=== PATIENT | male | born 1980 | race Caucasian/White ===

== ENCOUNTER 2024-05-26 17:47 | Observation (INO) ==
[2024-05-26 18:30] LABS: Basophils # (auto) 0.04 K/uL (0.00-0.20); Basophils % (auto) 0.3 %; Eosinophils # (auto) 0.27 K/uL (0.00-0.50); Eosinophils % (auto) 2.2 %; Hematocrit (blood only) 42.1 % (42.0-52.0); Hemoglobin 14.5 g/dl (14.0-18.0); Immature Granulocytes # (auto) 0.04 K/uL (0.01-0.20); Immature Granulocytes % (auto) 0.3 %; Lymphocytes # (auto) 2.77 K/uL (1.20-3.40); Lymphocytes % (auto) 22.9 %; Mean Corpuscular Hemoglobin 30.5 pg (25.0-34.0); Mean Corpuscular Hgb Conc 34.4 g/dL (32.0-36.0); Mean Corpuscular Volume 88.4 fL (80.0-100.0); Mean Platelet Volume 11.1 fL (9.4-12.4); Monocytes # (auto) 0.64 K/uL (0.11-0.59); Monocytes % (auto) 5.3 %; Neutrophils # (auto) 8.34 K/uL (1.40-6.50); Platelet Count 190 K/uL (130-400); RDW Standard Deviation 38.4 fL (36.4-46.3); Red Blood Count 4.76 M/uL (4.70-6.10)
[2024-05-26] MEDS: ONDANSETRON INJ 2 MG/ML 2 ML VIAL IV STA (18:30)
[2024-05-26] MEDS: SODIUM CHLORIDE 0.9% 1,000 ML IV ONE (18:31)
--- NOTE | 2024-05-26 18:34 | Emergency Department Note ---
Impression & Plan Acute appendicitis ED Provider Note Diagnosis: Acute appendicitis Disposition: Admission CHIEF COMPLAINT: Abdominal pain HPI: Patient is a 43-year-old male presenting with complaint of right-sided abdominal pain. Patient states symptoms started as of yesterday and have continued today. Patient points to the right lower quadrant when asked where his pain is located. Patient denies any fevers. Patient has had nausea. Patient denies any prior abdominal surgeries. Patient denies any sick contacts. PAST MEDICAL HISTORY: See Below PAST SURGICAL HISTORY: See Below SOCIAL HISTORY: See Below HOME MEDICATIONS: See Below ALLERGIES: See Below VITALS: See Below PHYSICAL EXAMINATION: GENERAL: Well appearing, well nourished, NAD, non-toxic. EYE EXAM: Normal conjunctiva. OROPHARYNX: Moist mucus membranes. Grossly normal dentition. NECK: Supple, LUNGS: Clear to auscultation. Normal chest wall mechanics. HEART: NSR ABDOMEN: Abdomen soft, tenderness right lower quadrant BACK: No CVA TTP. SKIN: No rashes and no bruising. UPPER EXTREMITIES: Upper extremities are grossly normal LOWER EXTREMITIES: Grossly normal, no edema. NEURO EXAM: A&O x3,, normal speech, moves all 4 extremities PSYCH: Cooperative MEDICAL DECISION MAKING: Reviewed external documents: History obtained from: Patient ER Course: Patient is a 43-year-old male presenting with complaint of right lower quadrant abdominal pain. Patient's pain is constant. Patient has leukocytosis on lab work. Patient had CT scan of abdomen pelvis performed which showed acute uncomplicated appendicitis. Patient was given IV Zosyn. Patient placed on maintenance fluids. Patient's last oral intake was 1 PM. On-call general surgery team Dr. Cain, coming into the hospital to perform surgery this evening. Labs (independently interpreted) are significant for: Leukocytosis Medications given: Normal saline, Zosyn Consultants: Dr. Cain Triage Nursing notes reviewed and agree them. Vital Signs: reviewed and remarkable for: no significant abnormalities Past Med/Surg History Problem List (Updated 05/27/24 @ 00:13 by Miki Faye DO) Encounter for pre-operative examination Acute appendicitis (Acute) Medical History (Updated 05/27/24 @ 00:13 by Miki Faye DO) No pertinent past medical history Surgical History (Updated 05/26/24 @ 21:59 by Berry Landis MD) No pertinent past surgical history Social History Smoking Status: Current some day smoker Preferred Language: Swedish Feels Safe at Home: Yes Allergies Allergies Allergy/AdvReac Type Severity Reaction Status Date / Time No Known Allergies Allergy Unverified 05/26/24 22:01 Results & Data (ED) Vital Signs Vital Signs - 24 hr 05/26/24 17:49 05/26/24 18:32 05/26/24 20:00 Temperature 36.4 C L Temperature Source Temporal Artery Scan Pulse Rate 81 Pulse Rate [Apical] 75 81 Pulse Rhythm [Apical] Pulse Strength [Apical] Respiratory Rate 16 16 20 Respiratory Effort / Characteristics Non-Labored Respiratory Depth Normal Respiratory Pattern Blood Pressure 156/102 H Blood Pressure [Left Arm] 126/82 129/94 Blood Pressure Mean 120 Blood Pressure Mean [Left Arm] 96 105 Blood Pressure Position [Left Arm] Pulse Oximetry 99 96 97 Oxygen Delivery Method Room Air Room Air Room Air Sepsis Recent Fever Within 48 Hours No Sepsis New/Unexplained Change in Mental Status N/A Sepsis Action Taken by Nursing No Action Required 05/26/24 21:00 05/26/24 23:08 05/26/24 23:18 Temperature 36.6 C 36.9 C Temperature Source Oral Oral Pulse Rate Pulse Rate [Apical] 83 82 70 Pulse Rhythm [Apical] Regular Regular Pulse Strength [Apical] Normal Normal Respiratory Rate 19 18 17 Respiratory Effort / Characteristics Non-Labored Spontaneous Non-Labored Spontaneous Respiratory Depth Normal Normal Respiratory Pattern Regular Regular Blood Pressure Blood Pressure [Left Arm] 134/89 124/75 120/76 Blood Pressure Mean Blood Pressure Mean [Left Arm] 104 91 90 Blood Pressure Position [Left Arm] Lying Semi-fowlers Pulse Oximetry 98 93 93 Oxygen Delivery Method Room Air Room Air Room Air Sepsis Recent Fever Within 48 Hours Sepsis New/Unexplained Change in Mental Status Sepsis Action Taken by Nursing 05/26/24 23:28 05/26/24 23:38 05/26/24 23:48 Temperature 36.5 C 36.4 C L 36.5 C Temperature Source Oral Oral Oral Pulse Rate Pulse Rate [Apical] 62 61 58 L Pulse Rhythm [Apical] Regular Regular Regular Pulse Strength [Apical] Normal Normal Normal Respiratory Rate 16 16 16 Respiratory Effort / Characteristics Non-Labored Spontaneous Non-Labored Spontaneous Non-Labored Spontaneous Respiratory Depth Normal Normal Normal Respiratory Pattern Regular Regular Regular Blood Pressure Blood Pressure [Left Arm] 117/73 122/71 115/72 Blood Pressure Mean Blood Pressure Mean [Left Arm] 87 88 86 Blood Pressure Position [Left Arm] Semi-fowlers Semi-fowlers Semi-fowlers Pulse Oximetry 95 95 93 Oxygen Delivery Method Room Air Room Air Room Air Sepsis Recent Fever Within 48 Hours Sepsis New/Unexplained Change in Mental Status Sepsis Action Taken by Nursing 05/26/24 23:58 05/27/24 00:08 Temperature 36.5 C 36.5 C Temperature Source Oral Oral Pulse Rate Pulse Rate [Apical] 64 57 L Pulse Rhythm [Apical] Regular Regular Pulse Strength [Apical] Normal Normal Respiratory Rate 17 16 Respiratory Effort / Characteristics Non-Labored Spontaneous Non-Labored Spontaneous Respiratory Depth Normal Normal Respiratory Pattern Regular Regular Blood Pressure Blood Pressure [Left Arm] 117/72 116/69 Blood Pressure Mean Blood Pressure Mean [Left Arm] 87 84 Blood Pressure Position [Left Arm] Semi-fowlers Semi-fowlers Pulse Oximetry 92 92 Oxygen Delivery Method Room Air Room Air Sepsis Recent Fever Within 48 Hours Sepsis New/Unexplained Change in Mental Status Sepsis Action Taken by Nursing Laboratory Data 05/26/24 18:10 05/26/24 18:10 Lab Results 05/26/24 05/26/24 Range/Units 18:05 18:10 WBC 12.10 H (4.8-10.8) K/ul RBC 4.76 (4.70-6.10) M/uL Hgb 14.5 (14.0-18.0) g/dl Hct 42.1 (42.0-52.0) % MCV 88.4 (80.0-100.0) fL MCH 30.5 (25.0-34.0) pg MCHC 34.4 (32.0-36.0) g/dL RDW Std Deviation 38.4 (36.4-46.3) fL RDW Coeff of Gee 12.0 (11.5-14.5) % Plt Count 190 (130-400) K/uL MPV 11.1 (9.4-12.4) fL Immature Gran % (Auto) 0.3 % Neut % (Auto) 69.0 % Lymph % (Auto) 22.9 % [place] % (Auto) 5.3 % Eos % (Auto) 2.2 % Baso % (Auto) 0.3 % Neut # (Auto) 8.34 H (1.40-6.50) K/uL Lymph # (Auto) 2.77 (1.20-3.40) K/uL [place] # (Auto) 0.64 H (0.11-0.59) K/uL Eos # (Auto) 0.27 (0.00-0.50) K/uL Baso # (Auto) 0.04 (0.00-0.20) K/uL Immature Gran # (Auto) 0.04 (0.01-0.20) K/uL Sodium 139 (136-145) mmol/L Potassium 3.6 (3.5-5.1) mmol/L Chloride 103 (98-107) mmol/L Carbon Dioxide 30 (21-32) mmol/L Anion Gap 6 (3-11) BUN 15 (6-23) mg/dl Creatinine 0.92 (0.6-1.4) mg/dl Est Cr Clr Drug Dosing 114.9 ml/min Est GFR ( Amer) 119.3 ml/min Est GFR (Non-Af Amer) 102.9 ml/min BUN/Creatinine Ratio 16.3 (10-20) Glucose 82 (70-99(Fasting)) mg/dl Calcium 9.6 (8.6-10.3) mg/dl Total Bilirubin 0.5 (0.2-1.0) mg/dl AST 15 (13-39) U/L ALT 15 (7-52) U/L Alkaline Phosphatase 59 (34-104) U/L Total Protein 7.3 (6.0-8.3) gm/dl Albumin 4.5 (3.4-5.0) gm/dl Globulin 2.8 (2.5-4.0) gm/dl Albumin/Globulin Ratio 1.6 (0.9-2) Lipase 33 (11-82) U/L Urine Color Yellow Urine Appearance Clear (Clear) Urine pH 6.5 (4.5-7.5) Ur Specific [place] 1.017 (1.000-1.030) Urine Protein Negative (Negative) Urine Glucose (UA) Negative (Negative) Urine Ketones Negative (Negative) Urine Blood Negative (Negative) Urine Nitrite Negative (Negative) Urine Bilirubin Negative (Negative) Urine Urobilinogen Negative (Negative) Ur Leukocyte Esterase Negative (Negative) Administered Medications Lactated Ringer's (Lr) 1,000 mls @ 80 mls/hr IV .[id number] AL Stop: 06/25/24 21:14 Last Admin: 05/26/24 21:29 Dose: 80 mls/hr Documented By: TONY Ketorolac Tromethamine (Ketorolac 30 Mg/Ml Vial) 30 mg IV ONCE PRN PRN Reason: PACU Use Only-Pain Stop: 05/27/24 06:02 Last Admin: 05/26/24 23:19 Dose: 30 mg Documented By: KOFFI Discontinued Medications Bupivacaine HCl/Epinephrine Bitart (Bupivacaine/Epinephrine 0.5% Mpf 1:200,000 30 Ml Vial) Confirm Administered Dose 30 ml .ROUTE .STK-MED ONE Stop: 05/26/24 21:33 Last Admin: 05/26/24 22:55 Dose: 30 ml Documented By: HENRY Sodium Chloride (Nss) 1,000 mls @ 999 mls/hr IV .Q1H1M ONE Stop: 05/26/24 19:16 Last Infusion: 05/26/24 20:10 Dose: Infused Documented By: Admin: 05/26/24 18:31 Dose: 999 mls/hr Documented By: SAMANTHA Piperacillin Sod/Tazobactam Sod (Zosyn) 4.5 gm in 100 mls @ 200 mls/hr IV NOW ONE Stop: 05/26/24 21:31 Last Admin: 05/26/24 21:29 Dose: 200 mls/hr Documented By: TONY Ioversol (Optiray 320 100ml) 91 ml IV ONCE ONE Stop: 05/26/24 19:06 Last Admin: 05/26/24 19:05 Dose: 91 ml Documented By: TUNDE Ketorolac Tromethamine (Ketorolac 30 Mg/Ml Vial) Confirm Administered Dose 30 mg .ROUTE .STK-MED ONE Stop: 05/26/24 23:17 Last Admin: 05/26/24 23:31 Dose: Not Given Documented By: KOFFI Ondansetron HCl (Ondansetron Inj 2 Mg/Ml 2 Ml Vial) 4 mg IV NOW STA Stop: 05/26/24 18:17 Last Admin: 05/26/24 18:30 Dose: 4 mg Documented By: KV Imaging Data Radiologist's Impression: Abdomen/Pelvis CT 05/26/24 18:16 CR Exam(s): CT ABDOMEN + PELVIS With Contrast IV Amt: 91 ml optiray 320 EXAM: CT Abdomen and Pelvis With Intravenous Contrast CLINICAL HISTORY: Reason for exam: RLQ pain, r/o appy, +n/v. TECHNIQUE: Axial computed tomography images of the abdomen and pelvis with intravenous contrast. CTDI is 27.09 mGy and DLP is 1505.21 mGy-cm. Automated exposure control was utilized for the study. A dose lowering technique was utilized adhering to the principles of ALARA. CONTRAST: Patient received 91 ml optiray 320 of IV contrast COMPARISON: No relevant prior studies available. FINDINGS: ABDOMEN: Liver: Unremarkable. Gallbladder and bile ducts: Unremarkable. Pancreas: Unremarkable. Spleen: Unremarkable. Adrenals: Unremarkable. Kidneys and ureters: Unremarkable. No obstructing stones. No hydronephrosis. Stomach and bowel: Unremarkable. PELVIS: Appendix: The appendix measures up to 1 cm with thickened mucosa and adjacent fat stranding. Appearance is consistent with acute appendicitis. No perforation or abscess. Bladder: Unremarkable. Reproductive: Unremarkable as visualized. ABDOMEN and PELVIS: Intraperitoneal space: Unremarkable. No free air. No significant fluid collection. Bones/joints: No acute fracture. Soft tissues: Unremarkable. Vasculature: Unremarkable. Lymph nodes: Unremarkable. IMPRESSION: Acute uncomplicated appendicitis. Communications: Verify Receipt Electronically signed by: Piotr Aguirre MD 05/26/24 20:27 PM Discharge Plan Visit Data Chief Complaint: Abdominal Pain Stated Complaint: RT LOW ABD PAIN, NAUSEA, VOMITED LAST NIGHT ED Provider: Miki Faye Discharge Problem: Acute appendicitis Patient Disposition: Admitted As Inpatient Discharge Instructions Interventions: ED Discharge Assessment Last Done: 05/26/24 21:45
[2024-05-26 18:40] LABS: Albumin Globulin Ratio 1.6 (0.9-2); Albumin Level 4.5 gm/dl (3.4-5.0); BUN Creatinine Ratio 16.3 (10-20); Bilirubin,Total 0.5 mg/dl (0.2-1.0); Calcium 9.6 mg/dl (8.6-10.3); Creatinine Clr Calc Pharmacy 114.9 ml/min; Est GFR (African American) 119.3 ml/min; Est GFR (Non-African American) 102.9 ml/min; Globulin 2.8 gm/dl (2.5-4.0); Potassium 3.6 mmol/L (3.5-5.1); Total Protein 7.3 gm/dl (6.0-8.3)
[2024-05-26 18:44] LABS: Appearance Urine Clear (Clear); Bilirubin Urine Negative (Negative); Blood Urine Negative (Negative); Color Urine Yellow; Glucose Urine UA Negative (Negative); Ketones Urine Negative (Negative); Leukocyte Esterase Urine Negative (Negative); Nitrite Urine Negative (Negative); Protein Urine Negative (Negative); Specific Gravity Urine 1.017 (1.000-1.030); Urobilinogen Urine Negative (Negative); pH Urine 6.5 (4.5-7.5)
[2024-05-26] MEDS: OPTIRAY 320 100ml IV ONE (19:05)
--- NOTE | 2024-05-26 20:28 | CT Scan Report ---
Exam(s): CT ABDOMEN + PELVIS With Contrast IV Amt: 91 ml optiray 320 EXAM: CT Abdomen and Pelvis With Intravenous Contrast CLINICAL HISTORY: Reason for exam: RLQ pain, r/o appy, +n/v. TECHNIQUE: Axial computed tomography images of the abdomen and pelvis with intravenous contrast. CTDI is 27.09 mGy and DLP is 1505.21 mGy-cm. Automated exposure control was utilized for the study. A dose lowering technique was utilized adhering to the principles of ALARA. CONTRAST: Patient received 91 ml optiray 320 of IV contrast COMPARISON: No relevant prior studies available. FINDINGS: ABDOMEN: Liver: Unremarkable. Gallbladder and bile ducts: Unremarkable. Pancreas: Unremarkable. Spleen: Unremarkable. Adrenals: Unremarkable. Kidneys and ureters: Unremarkable. No obstructing stones. No hydronephrosis. Stomach and bowel: Unremarkable. PELVIS: Appendix: The appendix measures up to 1 cm with thickened mucosa and adjacent fat stranding. Appearance is consistent with acute appendicitis. No perforation or abscess. Bladder: Unremarkable. Reproductive: Unremarkable as visualized. ABDOMEN and PELVIS: Intraperitoneal space: Unremarkable. No free air. No significant fluid collection. Bones/joints: No acute fracture. Soft tissues: Unremarkable. Vasculature: Unremarkable. Lymph nodes: Unremarkable. IMPRESSION: Acute uncomplicated appendicitis. Communications: Verify Receipt Electronically signed by: Piotr Aguirre MD 05/26/24 20:27 PM
[2024-05-26] MEDS ORDERED: MIDAZOLAM HCL 1 MG/ML 2ML VIAL ONE (21:21)
[2024-05-26] MEDS ORDERED: fentaNYL citrate PF 100 MCG/2 ML VIAL ONE (21:21)
[2024-05-26] MEDS: PIPERACILLIN/TAZOBACTAM 4.5 GM/100 ML BAG IV ONE (21:29)
[2024-05-26] MEDS: LACTATED RINGER'S 1,000 ML IV SCH (21:29)
--- NOTE | 2024-05-26 21:47 | History & Physical Report ---
Date of Service May 26, 2024 Assessment & Plan (1) Acute appendicitis: Plan: discussed options/risks ( bleeding/infection/injury to another organ/dvt/pe/mi/cva) questions answered. pt agreeable. will proceed with lap appendectomy this evening. History of Present Illness Primary Care Provider: Tom Haskins MD 43 y/o with abdominal pain starting this afternoon. gradually move to right lower quadrant. wbc 12,000. CT shows acute uncomplicated appendicitis Past Med/Surg History Problem List (Updated 05/26/24 @ 21:48 by Thaddeus Cain, DO) Acute appendicitis Social History Smoking Status: Current some day smoker Preferred Language: Telugu Feels Safe at Home: Yes Review of Systems All systems reviewed & are unremarkable except as noted in HPI & below Physical Exam Constitutional: WD/WN, vitals as above no acute distress and not ill appearing Eyes: PERRL, conjunctivae normal, anicteric sclerae EOM intact bilaterally ENMT: external ear and nose normal, oropharynx normal Ears: no hearing impairment Neck: trachea midline, no thyromegaly Respiratory: normal respiratory effort; no respiratory distress and does not use accessory muscles Cardiovascular: Rate/Rhythm: regular rate and regular rhythm Gastrointestinal (Abdomen): soft. +RLQ ttp. +Rovsing sign Skin: no rashes, warm and dry Psychiatric: Orientation: alert, oriented x 3 and cooperative Results & Data Vital Signs (Past 12 Hours) Vital Signs Temp Pulse Pulse Resp BP BP Pulse Ox 05/26/24 21:00 83 19 134/89 98 05/26/24 20:00 81 20 129/94 97 05/26/24 18:32 75 16 126/82 96 05/26/24 17:49 36.4 C L 81 16 156/102 H 99 O2 Del Method 05/26/24 21:00 Room Air 05/26/24 20:00 Room Air 05/26/24 18:32 Room Air 05/26/24 17:49 Room Air
--- NOTE | 2024-05-26 22:00 | Anesthesiology Consultation ---
Date of Service May 26, 2024 Assessment & Plan (1) Encounter for pre-operative examination: Chart Review Chart Review: Acceptable Risk for Surgery History Surgery Operation Date: 05/26/24 21:30 Proposed Procedures p Laparoscopic Appendectomy - Thaddeus Cain DO Height/Weight Height: 5 ft 8 in Weight: 89.6 kg Medications Active Medications Generic Name Dose Route Start Last Admin Trade Name Freq PRN Reason Stop Dose Admin Lactated Ringer's 1,000 mls @ 80 mls/hr 05/26/24 21:15 05/26/24 21:29 Lr IV 06/25/24 21:14 80 mls/hr .[id number] AL Administration NPO Date Last Intake of Fluids: 05/26/24 Time Last Intake of Fluids: 17:15 Date Last Intake of Solids: 05/26/24 Time Last Intake of Solids: 13:00 Past Medical History Medical History (Updated 05/26/24 @ 22:00 by Berry Landis MD) No pertinent past medical history Exercise / Class Metabolic Activity 1 > 8 Run/Swim/Ski/Tennis Past Surgical History Surgical History (Updated 05/26/24 @ 21:59 by Berry Landis MD) No pertinent past surgical history Social History Smoking Status: Current some day smoker Physical Exam Vital Signs Last Vital Signs Temp 36.4 C L 05/26/24 17:49 Pulse 83 05/26/24 21:00 Resp 19 05/26/24 21:00 BP 134/89 05/26/24 21:00 Pulse Ox 98 05/26/24 21:00 O2 Del Method Room Air 05/26/24 21:00 Testing Laboratory Results 05/26/24 18:10 05/26/24 18:10 Urine Color Yellow 05/26/24 18:05 Urine Appearance Clear (Clear) 05/26/24 18:05 Urine pH 6.5 (4.5-7.5) 05/26/24 18:05 Ur Specific [place] 1.017 (1.000-1.030) 05/26/24 18:05 Urine Protein Negative (Negative) 05/26/24 18:05 Urine Glucose (UA) Negative (Negative) 05/26/24 18:05 Urine Ketones Negative (Negative) 05/26/24 18:05 Urine Nitrite Negative (Negative) 05/26/24 18:05 Ur Leukocyte Esterase Negative (Negative) 05/26/24 18:05
[2024-05-26] MEDS ORDERED: ONDANSETRON INJ 2 MG/ML 2 ML VIAL IV PRN (22:01)
[2024-05-26] MEDS ORDERED: fentaNYL citrate PF 100 MCG/2 ML VIAL IV PRN (22:01)
[2024-05-26] MEDS ORDERED: PROMETHAZINE HCL 6.25 MG in SODIUM CHLORIDE 0.9% 50 ML IV PRN (22:01)
[2024-05-26] MEDS ORDERED: ATROPINE SULFATE 0.1 MG/ML 10ML SYR IV PRN (22:01)
[2024-05-26] MEDS: BUPIVACAINE/EPINEPHRINE 0.5% MPF 1:200,000 30 ML VIAL ONE (22:55)
[2024-05-26] MEDS ORDERED: MEPERIDINE HCL 25 MG/ML CARP/VIAL IV PRN (23:09)
--- NOTE | 2024-05-26 23:09 | Operative Report ---
PG Post Operative Report Pre & Post Diagnosis Operation Date: 05/26/24 21:30 Pre-Op Diagnosis: Acute Appendicitis Post-Op Diagnosis: Acute Appendicitis I identified the patient and participated in the time-out.: Yes Procedure Operation Date: 05/26/24 21:30 Actual Procedures p Laparoscopic Appendectomy(Not Applicable) - Thaddeus Cain DO Surgeon Thaddeus Cain DO Chief Deputy n/a Estimated Blood Loss 5 Findings Consistent with Post-Op Diagnosis Specimens appendix Description of Procedure After informed consent was obtained the patient was taken to the operating room and placed in supine position. After successful intubation a Luna catheter was placed and the left arm was tucked. I began by making a periumbilical incision with an 11 blade scalpel and carried this down through the soft tissue using electrocautery. The anterior rectus fascia was opened using electrocautery and 2 #0 Vicryl stay sutures were placed. The peritoneum was elevated using hemostats and incised under direct vision using a Metzenbaum scissor. A finger sweep was performed. A 12 mm Restrepo trocar was placed and the abdomen was insufflated to 18 mmHg. A laparoscope was inserted and the abdomen was examined in 360. A suprapubic 5 mm port and a left lower quadrant 12 mm port were placed under direct vision. The patient was air planed to the left as well as placed in a slight Trendelenburg position. We began by looking in the right lower quadrant. We were able to readily identify the appendix and it was grossly inflamed. It had not perforated. There is a small amount of purulent fluid in the right lower quadrant and the pelvis. We immediately irrigated and suctioned this out. I was able to use primarily blunt dissection to pull the appendix away from the right lower quadrant sidewall. I used a [place] dissector to create a window in the mesentery of the appendix. I was then able to use a ROMANA brown cartridge stapler to transect first the mesentery of the appendix as well followed by the appendix itself at its base with the cecum. It was then placed into an Endo Catch bag and removed from the camera port site. We thoroughly irrigated the right lower quadrant as well as the pelvis. There was adequate hemostasis. I ran the small bowel backwards from the terminal ileum for about 6 feet all of which was normal. All the peritoneal surfaces were normal. Small/ large bowel, liver, stomach etc. all appeared grossly normal. We did a final irrigation and then removed all the trochars and desufflated the abdomen. The fascia of the camera port as well as the left lower quadrant were closed using 0 Vicryl in [id number] fashion. Wounds were all irrigated and closed using 4-0 Monocryl. Marcaine was injected around them for postoperative analgesia and skin glue used as a dressing. The patient was awakened extubated and transferred to recovery in stable condition. I attest to the content of the Intraoperative Record and any orders documented therein. Any exceptions are noted below.
[2024-05-26] MEDS ORDERED: PROPOFOL IV EMULSION 10 MG/ML 20 ML VIAL IV ONE (23:12)
[2024-05-26] MEDS ORDERED: GLYCOPYRROLATE 0.2 MG/ML VIAL ONE (23:12)
[2024-05-26] MEDS ORDERED: NEOSTIGMINE METHYLSULFATE 1 MG/ML 10ML VIAL ONE (23:12)
[2024-05-26] MEDS ORDERED: ONDANSETRON INJ 2 MG/ML 2 ML VIAL ONE (23:12)
[2024-05-26] MEDS ORDERED: DEXAMETHASONE SOD INJ 4 MG/ML VIAL ONE (23:12)
[2024-05-26] MEDS ORDERED: LIDOCAINE 2% 2 ML VIAL/AMP(20MG/ML) INFIL ONE (23:12)
[2024-05-26] MEDS ORDERED: ROCURONIUM BROMIDE 10 MG/ML 5 ML VIAL IV ONE (23:12)
[2024-05-26] MEDS: KETOROLAC 30 MG/ML VIAL IV PRN (23:19)
[2024-05-26] MEDS: KETOROLAC 30 MG/ML VIAL ONE (23:31)
--- NOTE | 2024-05-26 23:36 | Anesthesiology Progress Note ---
Date of Service May 26, 2024 Anesthesia Post Procedure Vital Signs Vital Signs: Temp Pulse Pulse Resp BP BP Pulse Ox 05/26/24 23:28 36.5 C 62 16 117/73 95 05/26/24 23:18 36.9 C 70 17 120/76 93 05/26/24 23:08 36.6 C 82 18 124/75 93 05/26/24 21:00 83 19 134/89 98 05/26/24 20:00 81 20 129/94 97 05/26/24 18:32 75 16 126/82 96 05/26/24 17:49 36.4 C L 81 16 156/102 H 99 O2 Del Method 05/26/24 23:28 Room Air 05/26/24 23:18 Room Air 05/26/24 23:08 Room Air 05/26/24 21:00 Room Air 05/26/24 20:00 Room Air 05/26/24 18:32 Room Air 05/26/24 17:49 Room Air Pain Intensity Abdomen: Pain Intensity: 7 Transfer of Care Handoff Completed per policy Notes Mental Status: alert / awake / arousable Patient Amnestic to Procedure: Yes Nausea / Vomiting: adequately controlled Pain: adequately controlled Airway Patency, RR, SpO2: stable & adequate BP & HR: stable & adequate Hydration State: stable & adequate Anesthetic Complications: no major complications apparent
[2024-05-27] MEDS ORDERED: oxyCODONE HCL IR 5 MG TAB (IMMEDIATE RELEASE) PO PRN (00:44)
[2024-05-27] MEDS ORDERED: HYDROmorphone INJ 0.5 MG/0.5 ML SYR IV PRN (00:44)
[2024-05-27] MEDS ORDERED: ONDANSETRON INJ 2 MG/ML 2 ML VIAL IV PRN (00:44)
[2024-05-27] MEDS ORDERED: IBUPROFEN 600 MG TAB PO PRN (00:44)
[2024-05-27] MEDS: HYDROmorphone INJ 0.5 MG/0.5 ML SYR IV PRN (01:04)
[2024-05-27] MEDS: ACETAMINOPHEN 1,000 MG/100 ML VIAL IV SCH (01:05)
[2024-05-27] MEDS: oxyCODONE HCL IR 5 MG TAB (IMMEDIATE RELEASE) PO PRN (05:54)
[2024-05-27 07:25] LABS: Eosinophils # (auto) 0.01 K/uL (0.00-0.50); Eosinophils % (auto) 0.1 %; Hematocrit (blood only) 40.6 % (42.0-52.0); Hemoglobin 14.2 g/dl (14.0-18.0); Immature Granulocytes # (auto) 0.03 K/uL (0.01-0.20); Immature Granulocytes % (auto) 0.3 %; Lymphocytes # (auto) 0.82 K/uL (1.20-3.40); Lymphocytes % (auto) 8.5 %; Mean Corpuscular Hemoglobin 30.9 pg (25.0-34.0); Mean Corpuscular Volume 88.5 fL (80.0-100.0); Mean Platelet Volume 11.2 fL (9.4-12.4); Monocytes # (auto) 0.12 K/uL (0.11-0.59); Monocytes % (auto) 1.2 %; Neutrophils # (auto) 8.64 K/uL (1.40-6.50); Neutrophils % (auto) 89.9 %; Platelet Count 192 K/uL (130-400); RDW Coefficient of Variation 11.8 % (11.5-14.5); RDW Standard Deviation 37.7 fL (36.4-46.3); Red Blood Count 4.59 M/uL (4.70-6.10); White Blood Count 9.62 K/ul (4.8-10.8)
[2024-05-27] MEDS ORDERED: ACETAMINOPHEN 325 MG TAB PO PRN (07:32)
--- NOTE | 2024-05-27 07:53 | Surgery Progress Note ---
Date of Service May 27, 2024 Assessment & Plan (1) Acute appendicitis: Plan: s/p lap appendectomy overnight WBC 9, hbg 14. vitals stable will advance diet this AM. if tolerates and pain remains well controlled may dispo to home today incisions c/d/i dispo instructions reviewed with pt who expressed understanding f/u in office with dr. moya in 2 weeks time Admission and Anticipated Discharge Date Admission Date: May 26, 2024 Subjective Patient feeling okay this AM. Reports some abdominal soreness and discomfort but this is manageable. He is tolerating some clears without nausea/vomiting. Passing some flatus. Is voiding. Physical Exam Physical Exam: awake/alert, no distress Gastrointestinal (Abdomen): Inspection/Auscultation: + abdomen distended (mild) and + abdominal surgical incision (c/d/i with dermabond, no signs of infection) Percussion/Palpation: + abdomen tender (expected anni incisional discomfort to palpation ) and abdomen soft Results & Data Vital Signs (Past 12 Hours) Vital Signs Temp Pulse Pulse Resp BP Pulse Ox O2 Del Method 05/27/24 06:58 97.9 F 72 16 109/72 95 Room Air 05/27/24 04:11 98.1 F 68 18 108/64 94 Room Air 05/27/24 02:50 97.9 F 67 18 100/63 94 Room Air 05/27/24 02:06 98.2 F 73 18 95/58 L 94 Room Air 05/27/24 01:28 98.2 F 62 18 111/66 92 Room Air 05/27/24 00:56 98.6 F 75 18 110/70 97 Room Air 05/27/24 00:18 97.7 F 61 17 115/71 97 Nasal Cannula 05/27/24 00:08 97.7 F 57 L 16 116/69 92 Room Air 05/26/24 23:58 97.7 F 64 17 117/72 92 Room Air 05/26/24 23:48 97.7 F 58 L 16 115/72 93 Room Air 05/26/24 23:38 97.5 F L 61 16 122/71 95 Room Air 05/26/24 23:28 97.7 F 62 16 117/73 95 Room Air 05/26/24 23:18 98.4 F 70 17 120/76 93 Room Air 05/26/24 23:08 97.8 F 82 18 124/75 93 Room Air 05/26/24 21:00 83 19 134/89 98 Room Air 05/26/24 20:00 81 20 129/94 97 Room Air O2 Flow Rate 05/27/24 06:58 05/27/24 04:11 05/27/24 02:50 05/27/24 02:06 05/27/24 01:28 05/27/24 00:56 05/27/24 00:18 2 05/27/24 00:08 05/26/24 23:58 05/26/24 23:48 05/26/24 23:38 05/26/24 23:28 05/26/24 23:18 05/26/24 23:08 05/26/24 21:00 05/26/24 20:00 PG Care Time/CCT Total # of Minutes Spent Total Time Spent with Patient: Total time spent is greater than 50% in coordination of care (as documented) at patient's floor/unit and/or counseling patient: Coding Level of Care Code 42515 Post Operative Follow-Up Diagnoses Acute appendicitis K35.80
== END 2024-05-27 10:23 | disposition home or self-care (01) ==
LOC: ED 17:47 → OR 21:48 → 3N 21:48